=== PATIENT | male | born 1980 | race Caucasian/White ===

== ENCOUNTER → 2020-08-14 17:51 | Outpatient (CLI) | payer BC, SELFPAY | PROVIDERS: PCP Family Medicine; Referring Provider Family Medicine; Visit Provider Family Medicine | DX: Z20.828 Contact with and (suspected) exposure to other viral communicable diseases (principal); J06.9 Acute upper respiratory infection, unspecified | CPT/HCPCS: 87635; C9803; U0003 ==

== ENCOUNTER 2021-06-07 23:09 | Emergency (ER) | payer BC, SELFPAY ==
[2021-06-07 23:10] VITALS: BP 137/96; PULSE 87; RESP 16; TEMP 36.4; O2SAT 98; BMI 33.7
--- NOTE | 2021-06-08 00:09 | EDS_ITS ---
HPI History of Present Illness HPI Narrative: Patient presents with left thigh pain that has been getting worse over the past 2 days. Patient states he recently fractured his left foot. Patient states he had some redness over the medial aspect of his left knee and left ankle. Patient states this has resolved. Patient states that he was told it was from a blood clot. Patient states that since yesterday he noted some redness to his left medial thigh. Patient states that area is painful. Patient states that the pain began a couple days ago in the left medial thigh. Patient is concerned that the clot has progressed to his thigh. Chief Complaint: Lower Extremity Injury Informant: patient Onset/Context/Timing Onset: Days (2) Context: Gradual Onset Timing: Continuous Quality of Pain: Aching Location: Left medial thigh Worsened by: Palpation Relieved by: Nothing Associated Symptoms Associated Symptoms: Positive for Parasthesia; Negative for Weakness and Loss of Funtion PFSH PFSH Medical History (Updated 06/08/21 @ 00:26 by Gemini Vance) Ankle fracture, left DVT (deep venous thrombosis) Medical History no medical history no medical history Home Medications dicyclomine 20 mg PO TIDAC PRN #20 capsule 09/06/15 [Rx Last Taken Unknown] promethazine 25 mg PO Q6H PRN PRN #10 tablet 09/06/15 [Rx Last Taken Unknown] Allergy/AdvReac Type Severity Reaction Status Date / Time No Known Allergies Allergy Verified 09/06/15 11:57 Surgical History no surgical history no surgical history Social History (Updated 06/08/21 @ 00:[address] Kodak Gilmoer, DO) Smoking Status: Current every day smoker tobacco type: cigarettes ROS ROS ED Constitutional Constitutional ED: Denies chills or fever(s) Eyes Eyes: Denies blurry vision or change in vision ENT ENT ED: Denies rhinorrhea or sore throat Cardiovascular Cardiovascular: Reports chest pain; Denies palpitations Respiratory/Chest Respiratory/Chest: Reports cough and dyspnea Gastrointestinal Gastrointestinal: Denies nausea or vomiting Genitourinary Genitourinary ED: Denies dysuria or hematuria Musculoskeletal Musculoskeletal: Reports back pain and neck pain Integumentary Reports rash; Denies abscess Neurologic Neurologic: Denies headache(s) or weakness Allergic/Immunologic Allergic/Immunologic ED: Denies mouth swelling or urticaria EXAM Physical Exam Const Vital Signs: 06/07/21 23:10 Temperature 97.6 F L Temperature Source Temporal Pulse Rate 87 Respiratory Rate 16 Blood Pressure 137/96 H Blood Pressure Mean 109 Pulse Ox 98 Oxygen Delivery Method Room Air Positive well nourished and well developed General Appearance ED: well developed HEENT Reports moist mucous membranes Neck full ROM and supple Resp normal respiratory effort and clear to auscultation bilaterally Cardio regular rate and regular rhythm GI non-tender Palpation: soft Extremity Extremity Narrative: There is tenderness with mild erythema over the medial aspect of the left thigh. There is no fluctuance. There is no discharge or drainage. There are no pustules. There are no petechia noted. There is no calf tenderness. There is no pitting edema of the lower extremities. Neuro oriented x3, CN's II-XII intact bilaterally, moves all extremities and no sensory deficits noted Sensorium / Orientation: alert Motor Exam: strength 5/5 throughout Psych mental status grossly normal MDM MDM MDM Narrative Medical decision making narrative: CBC shows a slight leukocytosis of 11.9. Basic metabolic profile was within normal limits. CTA of the chest was obtained. There is no pulmonary embolism or aortic dissection. This was interpreted by the radiologist and reviewed by myself. Patient was advised of his findings. Patient was given an order for outpatient venous duplex of his left lower extremity. Patient was instructed return tomorrow for that. Patient was instructed to follow-up with his primary care physician in 5 to 7 days. Patient understood and was agreeable with the plan. All questions were answered. Lab Data Attestation: I reviewed the patient's lab results. Labs: Laboratory Results - last 24 hr 06/08/21 06/08/21 00:20 00:20 WBC 11.9 H RBC 4.74 Hgb 14.6 Hct 42.3 MCV 89.2 MCH 30.8 MCHC 34.5 RDW Std Deviation 40.9 RDW Coeff of [place] 12.5 Plt Count 220 MPV 10.4 Immature Gran % (Auto) 0.500 Neut % (Auto) 69.5 Lymph % (Auto) 21.7 Knott % (Auto) 6.8 Eos % (Auto) 0.7 Baso % (Auto) 0.8 Absolute Neuts (auto) 8.3 H Absolute Lymphs (auto) 2.57 Nucleated RBC % 0 Sodium 141 Potassium 3.7 Chloride 106 Carbon Dioxide 30.0 Anion Gap 5 BUN 10 Creatinine 0.96 Estim Creat Clear Calc 103.50 Est GFR (MDRD) Af Amer 111 Est GFR (MDRD) Non-Af 92 BUN/Creatinine Ratio 10.4 Glucose 93 Calcium 9.2 Radiography Diagnostic Testing: Radiology Impression Chest CTA 06/08/21 00:09 IMPRESSION: Normal CTA chest examination, without a demonstrated pulmonary embolism or arterial dissection. Electronically Signed: Destini Manning MD at 1:24 EDT Tel , Service support , Discharge Plan Triage Chief Complaint: Lower Extremity Injury ED Provider: Kodak Gilmore Dx/Rx/DC Orders Prescriptions: No Action promethazine 25 MG tablet 25 mg PO Q6H PRN PRN (Reason: Nausea) Qty: 10 RF: 0 dicyclomine 10 MG capsule 20 mg PO TIDAC PRN (Reason: Pain) Qty: 20 RF: 0 Other Ambulatory Orders: Venous Duplex US, Unilateral (Routine) Facility: [facility] - Location: [facility] Ordered By: Dr. Kodak Gilmore Primary Care Provider: Yevgeniy Burns Referrals: Yevgeniy Burns MD [Primary Care Provider] - 3-5 Days Disposition Disposition: Home, Self Care
--- NOTE | 2021-06-08 00:09 | CT_ITS ---
STUDY: CTA CHEST REASON FOR EXAM: Male, 41 years old. Chest pain RADIATION DOSAGE (If Supplied By Facility): CTDIvol = ( 13.29 ) mGy, DLP = ( 528.53 ) mGycm TECHNIQUE: The examination was performed with the intravenous administration of IV 100mL Isovue-370. Post-processing of the angiographic images was performed, with multiplanar reformation and 3D reconstruction. Individualized dose optimization techniques were used for this CT. COMPARISON: None. FINDINGS: Normal enhancement of the main pulmonary artery and right and left pulmonary arteries. Normal enhancement of the bilateral peripheral pulmonary arteries. There is no demonstrated pulmonary embolism. Normal thoracic aorta and visualized great vessels. There is no demonstrated aortic dissection. Normal heart and pericardium. Normal mediastinum. Normal hilar regions. Normal visualized trachea and bronchi. The lungs are well expanded. Normal pulmonary parenchyma. Normal pleura. Normal chest wall structures. Normal osseous structures. Normal visualized upper abdomen. CT/CTA Chest W/WO Contrast IMPRESSION: Normal CTA chest examination, without a demonstrated pulmonary embolism or arterial dissection. Electronically Signed: Destini Manning MD at 1:24 EDT Tel , Service support ,
[2021-06-08 00:27] LABS: Absolute Lymphocyte Count 2.57 X10^3/uL (0.83-4.51); Absolute Neutrophil Count 8.3 X10^3/uL (2.0-7.7); Basophil# 0.09 X10^3/uL; Basophil% 0.8 % (0-1); Eosinophil# 0.08 X10^3/uL; Eosinophils% 0.7 % (0-5); Hematocrit 42.3 % (40-54); Hemoglobin 14.6 g/dL (13.0-16.5); Lymphocyte # 2.57 X10^3/ul (0.83-4.51); Lymphocyte % 21.7 % (19-41); Mean Corp Hgb Conc 34.5 g/dL (32-36); Mean Corpuscular Hgb 30.8 pg (27.0-32.0); Mean Corpuscular Volume 89.2 fL (80-94); Mean Platelet Vol. 10.4 fl (6.2-12.0); Monocyte# 0.81 X10^3/uL; Monocyte% 6.8 % (0-10); NRBC Flagged by Analyzer 0 % (0-5); Neutrophil # 8.26 X10^3/uL (2.7-7.7); Neutrophil % 69.5 % (47-70); Platelet Count 220 K/mm3 (150-450); RBC Distribution Width CV 12.5 % (11.6-14.6); RBC Distribution Width SD 40.9 fl (35.1-43.9); Red Blood Count 4.74 M/mm3 (4.6-6.2); White Blood Count 11.9 K/mm3 (4.4-11.0)
[2021-06-08 00:41] LABS: Anion Gap 5 (5-15); BUN 10 mg/dL (7-18); BUN/Creat Ratio 10.4 RATIO (10-20); Calcium,Total 9.2 mg/dL (8.5-10.1); Chloride 106 mmol/L (98-107); Creatinine, Serum 0.96 mg/dL (0.70-1.30); EST Glomerular Filtration Rate 92 mL/min (>60); Est Glom Filt Rate - Afr Amer 111 mL/min (>60); Glucose 93 mg/dL (74-106); Potassium 3.7 mmol/L (3.5-5.1); Sodium Level 141 mmol/L (136-145)
== END 2021-06-08 02:23 | disposition home or self-care (01) ==
PROVIDERS: Emergency Provider Emergency Medicine; PCP Family Medicine
DX: S79.922A Unspecified injury of left thigh, initial encounter (principal); F17.210 Nicotine dependence, cigarettes, uncomplicated; X58.XXXA Exposure to other specified factors, initial encounter
CPT/HCPCS: 71275; 80048; 85025; 99283; Q9967; A4216

== ENCOUNTER → 2021-06-08 14:06 | Outpatient (CLI) | payer BC, SELFPAY ==
--- NOTE | 2021-06-08 14:10 | VDLE_ITS ---
Reason For Study: Left thigh pain RIGHT LEFT CFV is compressible, spontaneous, phasic, GSV is normal. competent and demonstrates normal CFV is compressible, spontaneous, phasic, augmentation. competent, and demonstrates normal Procedure augmentation. This is a venous duplex using B-mode, color FV is compressible, spontaneous, phasic, flow and spectral Doppler. competent and demonstrates normal Exam performed in department. augmentation. A preliminary report was called and/or faxed POP V is compressible, spontaneous, phasic, to [facility]. Pt to follow up with PCP. competent and demonstrates normal augmentation. T/P Trunk is compressible. LT PerV is compressible. Acute deep vein thrombosis noted in the left PTV and SoleusV. Thrombus filled varicose veins noted in the left mid thigh. VL/Venous Duplex US, Unilateral Interpretation Summary Acute deep venous thrombosis left posterior tibial and soleus veins. Superficial thrombophlebitis varicose veins left mid thigh Normal flow patternsl right common femoral vein Ordering Physician: Yevgeniy Burns Referring Physician: Yevgeniy Burns Performed By: Megan Emerson RVT
== END ==
LOC: CVS 14:07
PROVIDERS: PCP Family Medicine; Referring Provider Family Medicine; Visit Provider Family Medicine
DX: S92.355D Nondisplaced fracture of fifth metatarsal bone, left foot, subsequent encounter for fracture with routine healing (principal); M79.652 Pain in left thigh; Z86.718 Personal history of other venous thrombosis and embolism
CPT/HCPCS: 93971

== ENCOUNTER 2021-09-28 13:43 | Outpatient (CLI) | payer BC, SELFPAY ==
--- NOTE | 2021-09-28 13:53 | VDLE_ITS ---
Reason For Study: DVT RIGHT LEFT CFV is compressible, spontaneous, phasic, GSV is normal. competent and demonstrates normal CFV is compressible, spontaneous, phasic, augmentation. competent, and demonstrates normal Procedure augmentation. Exam performed in department. FV is compressible, spontaneous, phasic, This is a venous duplex using B-mode, color competent and demonstrates normal flow and spectral Doppler. augmentation. A preliminary report was called and/or faxed POP V is compressible, spontaneous, phasic, to DR OLIVA HINDS. competent and demonstrates normal augmentation. T/P Trunk is compressible. PTV is compressible. LT PerV is compressible. LT SOLEUS V is compressible. LT VARICOSE V are compressible. LT PTV has resolved and is compressible. VL/Venous Duplex US, Unilateral Interpretation Summary There is no evidence of left lower extremity deep vein thrombosis. Resolution o f left posterior tibial and soleus vein deep venous thrombosis and resolution of superficial thr ombophlebitis varicosities left leg from the previous examination of June 08, 2021 Normal flow patterns right common femoral vein Ordering Physician: Oliva Hinds Referring Physician: Oliva Hinds Performed By: Allyn Saldivar, STEPAN, RVT
== END 2021-09-28 23:59 | disposition short-term general hospital (02) ==
PROVIDERS: PCP Family Medicine; Referring Provider Family Medicine; Visit Provider Family Medicine
DX: I82.442 Acute embolism and thrombosis of left tibial vein (principal)
CPT/HCPCS: 93971